=== PATIENT | female | born 1945 | race Two or more races ===

== ENCOUNTER → 2017-10-12 | Outpatient (CLI) | payer MEDICARE ==
[~2017-10-12] MED LIST: BENTYL10 MG PO; METFORMIN HCL850 MG PO
--- NOTE | 2017-10-16 14:35 | Pulmonary Function Test ---
DATE OF STUDY: October 12, 2017 SPIROMETRY: Spirometry demonstrates nonspecific findings. FEV1 was 1.64 liters or 82% predicted, and FVC was decreased at 1.95 liters or 76% predicted. After bronchodilator administration, there was no specifically significant change in spirometry. Flow volume loop was limited and was possibly consistent with fixed obstructive lesion. LUNG VOLUMES: Lung volumes as assessed by nitrogen washout method demonstrate no definite evidence of restriction by classical criteria although there were some problems maintaining mouth seal on mouthpiece. Total lung opacity registered at 164% predicted. DIFFUSION CAPACITY: Diffusion capacity was decreased moderately at 10.95 mL per mmHg per minute or 53% predicted. Of note, effort was mildly decreased, which may sometimes decrease the measured results of this test. SUMMARY: Spirometry suggests possible mild restriction versus hyperinflation as noted by decreased FVC. Flow volume loop limited but in the appropriate clinical situation could be consistent with fixed airway defect. Diffusion capacity was moderately decreased. This may sometimes be seen in alveolar interstitial lung disease. Flow volume loop abnormality as above. Of note, there was mild limitation in many facets of this test; so, clinical correlation is recommended. A repeat testing may be performed if indicated. Job#: [id number] EV
== END ==
LOC: RESP 09:37
PROVIDERS: ATTEND Internal Medicine Critical Care Medicine
DX: J45.909 Unspecified asthma, uncomplicated (principal)
CPT/HCPCS: 94060; 94727; 94729

== ENCOUNTER → 2017-11-26 | Outpatient (CLI) | payer MEDICARE ==
--- NOTE | 2017-11-26 18:32 | Diagnostic Imaging Report ---
PROCEDURE: CT CHEST WITHOUT CONTRAST CT scan of the chest WITHOUT intravenous contrast, using standard protocol. TECHNIQUE: The chest was scanned utilizing a multidetector helical scanner from the apex to the level of the adrenal glands. No IV contrast was administered per physician's request. Coronal and sagittal multiplanar reformations were obtained. COMPARISON: Patients [facility], CT, CT CHEST W, 08/19/2012, 13:44. Patients [facility], DX, CHEST 2 VIEWS, 11/19/2016, 9:24. INDICATIONS: BRONCHITIS, CHEST PAIN FINDINGS: Lines/tubes: None. Lungs and Airways: Lungs are essentially clear. No consolidation, nodules, or masses. Airways are clear, without endobronchial lesions. No bronchiectasis. Pleura: No effusion, or pneumothorax. Heart and mediastinum: Thyroid is unremarkable. Heart size is normal. No pericardial effusion. Aorta is non-aneurysmal. Main pulmonary artery is normal in size, measuring 2.9 cm. Lymph nodes: No mediastina, hilar, or axillary adenopathy. Abdomen: Limited views of the upper abdomen show no abnormality within the visualized liver, spleen, pancreas, or kidneys. The adrenal glands are unremarkable. Bones: No aggressive lytic lesion. Degenerative disc changes in the thoracic spine. IMPRESSION: 1. essentially unremarkable chest CT. Norberto Theodore M.D. Dictated by: Norberto Theodore M.D. on 11/26/2017 at 18:34 Electronically approved by: Norberto Theodore M.D. on 11/26/2017 at 18:34
== END ==
LOC: CT 12:29
PROVIDERS: ATTEND Family Medicine
DX: R07.9 Chest pain, unspecified (principal); J40 Bronchitis, not specified as acute or chronic
CPT/HCPCS: 71250

== ENCOUNTER → 2018-07-27 | Outpatient (CLI) | payer MEDICARE ==
--- NOTE | 2018-07-27 12:16 | Diagnostic Imaging Report ---
EXAMINATION: CHEST 2 VIEWS INDICATION: ^BRONCHITIS COMPARISON: CT chest without contrast 11/26/2017. Chest x-ray 11/06/2014. FINDINGS: PA and lateral views TUBES and LINES: None. LUNGS: Lungs are well inflated. Bilateral peribronchial cuffing. There is no evidence of pneumonia or pulmonary edema. PLEURA: No pleural effusion or pneumothorax. HEART AND MEDIASTINUM: The cardiomediastinal silhouette is unremarkable. BONES AND SOFT TISSUES: No acute osseous lesion. Soft tissues are unremarkable. UPPER ABDOMEN: No free air under the diaphragm. IMPRESSION: Bilateral peribronchial cuffing, which could represent viral etiology or reactive airway disease. Signed by: Dr. Rodrigo Pruitt M.D. on 07/27/2018 12:13 PM
--- NOTE | 2018-07-27 14:05 | Diagnostic Imaging Report ---
EXAM: Right Upper Quadrant Ultrasound INDICATION: ^RIGHT UPPER QUADRANT PAIN COMPARISON: CT chest 11/26/2017. TECHNIQUE: Transverse and longitudinal images of the right upper abdomen were obtained. FINDINGS: Liver: Size: 12.5 cm in the right midclavicular line, normal Appearance: Increased echogenicity, smooth contour Mass: No focal masses Gallbladder: Surgically resected. Bile Ducts: Intrahepatic Ducts: No dilatation Extrahepatic Ducts: Common bile duct measures 0.4 cm, no dilatation Pancreas: Visualized portions of the pancreatic head, neck and proximal body are normal. Right Kidney: Size: 8.8 x 4.1 x 3.8 cm Echogenicity: Normal Parenchymal thickness: Normal Collecting system: No hydronephrosis Stones: None Cyst/Mass: None Vessels: Aorta: Visualized portions are normal. 1.6 cm. Inferior Vena Cava: Visualized portions are normal Main Portal Vein: 0.8 cm, normal size with hepatopetal flow. Free Fluid: No ascites or pleural effusion IMPRESSION: Diffuse hepatic steatosis without focal mass. Signed by: Dr. Rodrigo Pruitt M.D. on 07/27/2018 2:01 PM
== END ==
LOC: US 11:20
PROVIDERS: ATTEND Family Medicine
DX: J40 Bronchitis, not specified as acute or chronic (principal); R10.11 Right upper quadrant pain; M54.5 Low back pain
CPT/HCPCS: 71046; 76705

== ENCOUNTER → 2018-10-21 | Outpatient (CLI) | payer MEDICARE ==
[~2018-10-21] MED LIST changes: +IOPAMIDOL 370 MG/ML 200 ML INFUS..BTL INJ ONE; +SODIUM CHLORIDE 0.9% 50ML 50 ML ONE
[2018-10-21 13:23] LABS: BLOOD UREA NITROGEN 19 mg/dL (7-26); BUN/CREATININE RATIO 23 (6-25); CREATININE, SERUM 0.83 mg/dL (0.57-1.11); EST GLOMERULAR FILTRATION RATE > 60 ML/MIN (60-)
--- NOTE | 2018-10-21 14:41 | Diagnostic Imaging Report ---
EXAMINATION: CT scan of the chest with contrast. TECHNIQUE: Spiral CT images of the chest were performed from the lung apices to the level of the adrenal glands after the intravenous administration of 100 cc of [id number] coronal and sagittal reformatted images were obtained. COMPARISON: CT chest 11/26/2017 CLINICAL HISTORY:Cough, shortness of breath, bronchitis DISCUSSION: LINES/TUBES: None. LUNGS AND AIRWAYS: Lungs are essentially clear. Trace groundglass opacity in the dependent lower lobes compatible with subsegmental atelectasis. Trachea, mainstem bronchi, and central lobar and segmental bronchi are patent without filling defect. PLEURA: No pneumothorax or pleural effusions. HEART AND MEDIASTINUM: Thyroid gland is normal. No ectasia or aneurysmal dilatation of the thoracic aorta. Great vessel origins are normal in caliber and configuration. Pulmonary outflow tract is of normal caliber. No central pulmonary embolus. No pericardial effusion. Normal heart size. H LYMPH NODES: No axillary, hilar, or mediastinal lymphadenopathy. ABDOMEN: Visualized portions of the liver, spleen, pancreas, and adrenal glands are unremarkable BONES AND SOFT TISSUES: No focal soft tissue abnormalities. No osseous destructive lesions. Degenerative disc changes of the thoracic spine. IMPRESSION: No acute intrathoracic CT abnormalities. No consolidative pneumonia. Signed by: Dr. Felipe Keating M.D. on 10/21/2018 2:37 PM
== END ==
LOC: CT 12:31
PROVIDERS: ATTEND Family Medicine
DX: R05 Cough (principal); R06.02 Shortness of breath
CPT/HCPCS: 36415; 71260; 82565; 84520; Q9967

== ENCOUNTER → 2018-11-18 | Outpatient (CLI) | payer MEDICARE ==
[~2018-11-18] MED LIST changes: -IOPAMIDOL 370 MG/ML 200 ML INFUS..BTL INJ ONE; -SODIUM CHLORIDE 0.9% 50ML 50 ML ONE
[2018-11-18 09:22] LABS: BASOPHILS % 0.4 % (0.0-1.0); EOSINOPHILS # (AUTO) 0.3 (0.0-0.4); EOSINOPHILS % 3.3 % (0.0-6.0); HEMATOCRIT 40.4 % (34.2-44.1); LYMPHOCYTES # (AUTO) 2.5 (1.0-3.2); LYMPHOCYTES % 31.1 % (18.0-39.1); MEAN CORPUSCULAR HGB CONC 32.2 g/dL (31-35); MEAN CORPUSCULAR VOLUME 87.1 fL (81-99); MONOCYTES # (AUTO) 0.7 (0.2-0.8); NEUTROPHILS # (AUTO) 4.6 (2.1-6.9); NEUTROPHILS % 55.8 % (38.7-80.0); PLATELET COUNT 285 x10e3/uL (140-360); RED BLOOD COUNT 4.64 x10e6/uL (3.6-5.1); RED CELL DISTRIBUTION WIDTH 12.8 % (11.7-14.4)
[2018-11-18 09:25] LABS: INR 0.89; PARTIAL THROMBOPLASTIN TIME 30.1 seconds (23.8-35.5); PROTHROMBIN TIME 12.5 seconds (11.9-14.5)
[2018-11-18 10:20] LABS: ALANINE AMINOTRANSFERASE 17 IU/L (0-55); ALBUMIN 3.4 g/dL (3.5-5.0); ALBUMIN/GLOBULIN RATIO 0.9 (0.8-2.0); ALKALINE PHOSPHATASE 61 IU/L (40-150); ANION GAP 11.1 mmol/L (8-16); BLOOD UREA NITROGEN 11 mg/dL (7-26); BUN/CREATININE RATIO 15 (6-25); CALCIUM 9.6 mg/dL (8.4-10.2); CARBON DIOXIDE 29 mmol/L (22-29); CHLORIDE 102 mmol/L (98-107); CREATININE, SERUM 0.74 mg/dL (0.57-1.11); EST GLOMERULAR FILTRATION RATE > 60 ML/MIN (60-); GLUCOSE 107 mg/dL (74-118); POTASSIUM 4.1 mmol/L (3.5-5.1); SODIUM 138 mmol/L (136-145)
[2018-11-20 18:02] LABS: ALPHA-1-ANTITRYPSIN 133 mg/dL (90-200)
== END ==
LOC: LAB 08:20
PROVIDERS: ATTEND Internal Medicine Critical Care Medicine
DX: R05 Cough (principal); J30.9 Allergic rhinitis, unspecified; J45.909 Unspecified asthma, uncomplicated; G47.33 Obstructive sleep apnea (adult) (pediatric); K21.9 Gastro-esophageal reflux disease without esophagitis
CPT/HCPCS: 36415; 80053; 82103; 82784; 85025; 85610; 85730; 86431

== ENCOUNTER → 2019-02-01 | Outpatient (CLI) | payer MEDICARE ==
--- NOTE | 2019-02-01 12:07 | Diagnostic Imaging Report ---
EXAM: SP LUMBAR, COMPLETE MIN 4VW, HIPS BILAT TWO VWS(+/- PELVIS) DATE: 02/01/2019 9:09 AM INDICATION: Lower back pain, hip pain ^[id number] ^[id number] ^TYPE II DIABETES MELLITUS COMPARISON: None FINDINGS: Lumbar spine: 5 views of the lumbar spine show 5 lumbar type vertebrae with rudimentary ribs at T12. Lumbar body heights and disc spaces are maintained. There is grade 1 spondylolisthesis of L4 on L5. There is extensive facet arthrosis from L4 through S1. Osteophytes are seen at the thoracolumbar junction. Surgical clips are noted in the upper abdomen. Bilateral hips: 2 views of each hip were obtained. No displaced fracture or dislocation is seen. Joint spaces are maintained. There are mild degenerative changes with lateral acetabular osteophytes noted bilaterally. Soft tissues unremarkable. IMPRESSION: 1. No acute bony abnormality. 2. Degenerative changes in the lumbar spine including facet arthrosis from L4 through S1, with grade 1 spondylolisthesis of L4 on L5. 3. Hip joint spaces are maintained. There are mild degenerative changes with lateral acetabular osteophytes noted. Signed by: Dr. Maximo Torres M.D. on 02/01/2019 12:04 PM
== END ==
LOC: RAD 09:01
PROVIDERS: ATTEND Family Medicine
DX: M25.552 Pain in left hip (principal); M25.551 Pain in right hip; M54.5 Low back pain; E11.9 Type 2 diabetes mellitus without complications
CPT/HCPCS: 72110; 73521

== ENCOUNTER → 2020-10-30 | Outpatient (CLI) | payer MEDICARE | LOC: US 08:32 | PROVIDERS: ATTEND Family Medicine | DX: R10.0 Acute abdomen (principal) | CPT/HCPCS: 76700; 76856 ==

== ENCOUNTER → 2021-07-02 | Outpatient (CLI) | payer MEDICARE | LOC: RAD 13:37 | PROVIDERS: ATTEND Nurse Practitioner Adult Health | DX: R60.0 Localized edema (principal) | CPT/HCPCS: 93971 ==